=== PATIENT | male | born 1960 | race American Indian/Alaskan Native ===

== ENCOUNTER 2016-11-11 06:11 | Day surgery (SDC) | payer OTHER ==
[2016-11-11] MEDS ORDERED: NACL 0.9% 500 ML 500 ML IV SCH (07:00)
[2016-11-11 07:23] LABS: Basophils % (Auto) 0.4 % (0.0-1.8); Eosinophils % (Auto) 1.8 % (0.0-4.3); Hematocrit 43.4 % (35.5-45.6); Hemoglobin 14.4 gm/dl (11.8-15.2); Mean Corpuscular HGB Conc 33 % (32-34); Mean Corpuscular Volume 76 fl (84-94); Platelet Count 214 K/mm3 (140-440); Red Cell Distribution Width 16.5 % (13.2-15.2); White Blood Count 6.4 K/mm3 (4.5-11.0)
[2016-11-11 07:29] LABS: Anion Gap 18 mmol/L; Blood Urea Nitrogen 12 mg/dL (9-20); Calcium 9.1 mg/dL (8.4-10.2); Carbon Dioxide 24 mmol/L (22-30); Chloride 103.1 mmol/L (98-107); Glucose 97 mg/dL (75-100); Potassium 4.2 mmol/L (3.6-5.0); Sodium 141 mmol/L (137-145)
[2016-11-11 07:30] LABS: INR 1.09 (0.87-1.13)
[2016-11-11 07:37] LABS: Mean Corpuscular Hemoglobin 25 pg (28-32)
[2016-11-11] MEDS ORDERED: HEPARIN/NS 5000 UNIT/500ML(CATH LAB) 1,000 ML IR ONE (08:23)
[2016-11-11] MEDS ORDERED: HEPARIN 10,000 UNITS/10 ML ONE (08:23)
[2016-11-11] MEDS ORDERED: CALAN ONE (08:24)
[2016-11-11] MEDS ORDERED: NITROGLYCERIN SYRINGE 3 ML ONE (08:24)
[2016-11-11] MEDS ORDERED: XYLOCAINE 2% INFILTRATI ONE (08:24)
[2016-11-11] MEDS ORDERED: VERSED ONE (08:29)
[2016-11-11] MEDS ORDERED: SUBLIMAZE ONE (08:30)
--- NOTE | 2016-11-11 09:33 | Short Stay Summary ---
Short Stay Documentation Date of service: 11/11/16 - History H&P: obtained from office - Allergies and Medications Current Medications: Allergies No Known Allergies Allergy (Verified 11/11/16 08:11) Home Medications Medication Instructions Recorded Confirmed Last Taken Type Aspirin EC [Aspirin Enteric Coated 325 mg PO QDAY #30 tablet 11/04/16 11/11/16 11/11/16 07:00 Rx TAB] AtorvaSTATin [Lipitor] 40 mg PO QHS #30 tablet 11/04/16 11/11/16 11/10/16 Rx Metoprolol [Lopressor TAB] 25 mg PO BID #60 tablet 11/04/16 11/11/16 11/10/16 Rx Nitroglycerin [Nitrostat] 0.4 mg SL .Q5MIN PRN #30 tablet 11/04/16 11/11/16 Unknown Rx Lisinopril [Zestril TAB] 10 mg PO QDAY 11/11/16 11/11/16 11/11/16 07:00 History Active Medications Sodium Chloride (Nacl 0.9% 500 Ml) 500 mls @ 50 mls/hr IV DIRECT HO Stop: 11/11/16 16:59 Last Admin: 11/11/16 07:56 Dose: 50 mls/hr - Brief post op/procedure progress note Date of procedure: 11/11/16 Pre-op diagnosis: abnl stress Post-op diagnosis: other (patent coronaries) Procedure: see report for [facility] Anesthesia: local Estimated blood loss: none Pathology: none - Disposition Condition at discharge: Good Disposition: DC-01 TO HOME OR SELFCARE - Discharge Diagnoses (1) Abnormal nuclear stress test Status: Acute (2) Chest pain Status: Resolved Qualifiers: Chest pain type: C Ischemic chest pain type: I (3) Right bundle branch block Status: Chronic (4) Hypertension Status: Chronic Qualifiers: Hypertension type: essential hypertension Short Stay Discharge Plan Activity: advance as tolerated Diet: low fat, low cholesterol, low salt Wound: keep clean and dry Follow up with: RUDY FONTANA MD [Staff Physician] - 7 Days
--- NOTE | 2016-11-11 10:20 | Cardiac Catherization Report ---
LEFT HEART CATHETERIZATION This is a left heart catheterization being done by Dr. Ybarra on 11/11/2016. CLINICAL INFORMATION: A 56-year-old Joaquín gentleman with hypertension, GERD, who had has chest pain and had a mildly abnormal nuclear scan, a small reversible anterior and apical defect suggestive of mild ischemia in the LAD territory with normal LV function. The patient is here for left heart cath despite being on beta-blockers and aspirin and statin medication. PROCEDURE: Left heart catheterization was performed via the right radial artery, sterile technique, local anesthesia, 6-Jamaican radial sheath inserted. Left system engaged with a JL3.5 catheter. FINDINGS: Left main is large and patent, bifurcates to a large LAD that is patent with mild luminal irregularities. Diagonal 1, diagonal 2 are [id number] caliber vessels that are patent. Circumflex and AV groove is a small to medium caliber and patent. High OM1 almost ramus is a small to medium caliber vessel that is patent with mild luminal irregularities. RCA engaged with JR4, is a large dominant vessel, is patent from proximally and distally, bifurcates to a medium caliber PDA and PLV that are patent. LV gram done in CINTIA and MELÉNDEZ view shows normal LV function, LVEDP 50 mmHg, LV is 120/15, aortic is 119/69. No gradient across the aortic valve on pullback. Then, 5-Jamaican catheters were taken over a guidewire, 6-Jamaican radial sheath was discontinued. Radial dressing applied. No hematoma. No bleeding. SUMMARY: 1. Patent coronaries with mild luminal irregularities in the LAD and circumflex, patent RCA, large, dominant with normal LV function. 2. Continue risk factor modification. JOB# [id number] KRUNAL/LUCIA
[2016-11-11 11:22] VITALS: BP 125/78
== END 2016-11-11 11:35 | disposition home or self-care (01) ==
LOC: CATHLABREC 06:11
PROVIDERS: ATTEND Internal Medicine
DX: R94.39 Abnormal result of other cardiovascular function study (principal); R07.9 Chest pain, unspecified; I45.10 Unspecified right bundle-branch block; I10 Essential (primary) hypertension; K21.9 Gastro-esophageal reflux disease without esophagitis; Z98.890 Other specified postprocedural states; Z79.82 Long term (current) use of aspirin; Z82.49 Family history of ischemic heart disease and other diseases of the circulatory system
CPT/HCPCS: 36415; 80048; 85025; 85610; 93005; 93010; 93458; C1894; J1644; J2250; J3010; J7040; Q9967